=== PATIENT | male | born 2000 | race American Indian/Alaskan Native ===

== ENCOUNTER 2022-01-30 23:25 | Emergency (ER) | payer SELFPAY ==
[2022-01-30 23:54] VITALS: BP 114/78
[2022-01-31] MEDS ORDERED: IBUPROFEN 600 MG TAB PO ONE (01:21)
[2022-01-31] MEDS ORDERED: ACETAMINOPHEN 500 MG TAB PO ONE (01:21)
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
== END 2022-01-30 23:55 | disposition left against medical advice (07) ==
LOC: ED 23:25
DX: M62.830 Muscle spasm of back (principal); V89.2XXA Person injured in unspecified motor-vehicle accident, traffic, initial encounter; Y93.89 Activity, other specified; Y92.89 Other specified places as the place of occurrence of the external cause; Y99.8 Other external cause status
CPT/HCPCS: 99282